=== PATIENT | female | born 1990 | race African-American/Black ===

== ENCOUNTER → 2016-12-13 | Outpatient (REF) | payer SELFPAY | LOC: M LAB REF 12:59 | PROVIDERS: ATTEND Advanced Practice Midwife | DX: Z12.4 Encounter for screening for malignant neoplasm of cervix (principal); Z11.3 Encounter for screening for infections with a predominantly sexual mode of transmission; R10.30 Lower abdominal pain, unspecified | CPT/HCPCS: 87086; 87491; 87591; G0123 ==

== ENCOUNTER 2018-01-18 09:17 | Emergency (ER) | payer SELFPAY, BC ==
[2018-01-18] MEDS: IBUPROFEN 800 MG TAB PO (10:28)
== END 2018-01-18 10:34 | disposition home or self-care (01) ==
LOC: M ED 09:17
DX: S20.219A Contusion of unspecified front wall of thorax, initial encounter (principal); W51.XXXA Accidental striking against or bumped into by another person, initial encounter; Y92.89 Other specified places as the place of occurrence of the external cause; J45.909 Unspecified asthma, uncomplicated
CPT/HCPCS: 71046